=== PATIENT | female | born 1980 | race Caucasian/White ===

== ENCOUNTER 2019-09-23 05:27 | Inpatient (IN) | payer BC ==
[2019-09-23] MEDS ORDERED: Celecoxib 200 MG Cap PO ONE (05:45)
[2019-09-23] MEDS ORDERED: Scopolamine 1.5 MG Transdermal Patch TOP ONE (05:45)
[2019-09-23] MEDS ORDERED: Acetaminophen 500 MG Tab PO ONE (05:45)
[2019-09-23] MEDS ORDERED: Gabapentin 300 MG Cap PO ONE (05:45)
[2019-09-23] MEDS ORDERED: cefOXitin 2 GM Vial ONE (06:40)
[2019-09-23] MEDS ORDERED: Dexamethasone 4 MG/ML SDV ONE (06:59)
[2019-09-23] MEDS ORDERED: Succinylcholine 200 MG/10 ML MDV ONE (06:59)
[2019-09-23] MEDS ORDERED: Rocuronium 50 MG/5 ML Vial ONE (06:59)
[2019-09-23] MEDS ORDERED: Propofol 200 MG/20 ML SDV ONE (06:59)
[2019-09-23] MEDS ORDERED: Glycopyrrolate 0.2 MG/ML 5 ML MDV ONE (06:59)
[2019-09-23] MEDS ORDERED: Neostigmine Methylsulfate 1 MG/ML 5 ML Syringe ONE (06:59)
[2019-09-23] MEDS ORDERED: Ondansetron 4 MG/2 ML SDV ONE (06:59)
[2019-09-23] MEDS ORDERED: fentaNYL 250 MCG/5 ML SDV ONE (06:59)
[2019-09-23] MEDS ORDERED: Midazolam 1 MG/ML 2 ML SDV ONE (06:59)
[2019-09-23] MEDS ORDERED: Dextrose 5%-Lactated Ringers 1,000 ML IV SCH (07:00)
[2019-09-23] MEDS ORDERED: Ketamine 50 MG in Sodium Chloride 0.9% 49.5 ML IV SCH (07:30)
[2019-09-23] MEDS ORDERED: Ketamine 500 MG/5 ML MDV IV SCH (07:30)
[2019-09-23] MEDS ORDERED: Lidocaine 2% 100 MG/5 ML Syringe IVPUSH SCH (07:30)
[2019-09-23] MEDS: cefOXitin 2 GM in Sodium Chloride 0.9% 50 ML IV ONE ×2 (07:48→11:01)
[2019-09-23] MEDS ORDERED: hydrOXYzine HCl 100 MG/2 ML SDV IM ONE (09:38)
[2019-09-23] MEDS ORDERED: Ondansetron 4 MG/2 ML SDV IVPUSH PRN (11:04)
[2019-09-23] MEDS ORDERED: diphenhydrAMINE 50 MG/ML SDV IVPUSH PRN (11:04)
[2019-09-23] MEDS ORDERED: hydrOXYzine HCl 100 MG/2 ML SDV IM PRN (11:04)
[2019-09-23] MEDS ORDERED: HYDROmorphone 0.5 MG/0.5 ML Syringe IVPUSH PRN (11:04)
[2019-09-23] MEDS ORDERED: SCOPOLAMINE PATCH CHECK TOP SCH (11:04)
[2019-09-23] MEDS ORDERED: HYDROmorphone 1 MG/ML Syringe IV PRN (11:04)
[2019-09-23] MEDS ORDERED: Labetalol 20 MG/4 ML Syringe IVPUSH PRN (11:04)
[2019-09-23] MEDS ORDERED: Metoclopramide 10 MG/2 ML SDV IVPUSH PRN (11:04)
[2019-09-23] MEDS: Ondansetron 4 MG/2 ML SDV IVPUSH PRN ×2 (11:13→18:20)
[2019-09-23] MEDS: Lidocaine 0.4%/D5W 2 GM/500 ML BAG IV SCH (11:15)
[2019-09-23] MEDS: Dextrose 5%-Lactated Ringers 1,000 ML IV SCH ×2 (11:17→22:20)
[2019-09-23] MEDS ORDERED: Lactated Ringers 1,000 ML ONE (13:04)
[2019-09-23] MEDS: cefOXitin 2 GM in Sodium Chloride 0.9% 50 ML IV SCH ×2 (13:55→19:26)
[2019-09-23] MEDS: Gabapentin 250 MG/5 ML Solution ML 470 ML Bottle PO SCH ×2 (13:56→21:07)
[2019-09-23] MEDS ORDERED: Pantoprazole 40 MG Vial IVPUSH SCH (16:00)
[2019-09-23] MEDS ORDERED: MVI, Adult with Vitamin K 10 ML, Thiamine 200 MG, Chromium/Copper/Mang/Selen/Zn 1 ML in... IV SCH ×4 (16:00)
[2019-09-23] MEDS: Acetaminophen 325 MG Tab PO SCH ×2 (16:13→21:06)
[2019-09-23] MEDS: Heparin Sodium 5,000 Units/ML Vial SUBCUT SCH (16:13)
[2019-09-24] MEDS: cefOXitin 2 GM in Sodium Chloride 0.9% 50 ML IV SCH ×2 (01:21→08:25)
[2019-09-24] MEDS ORDERED: Iopamidol 612 MG/ML 50 ML SDV PO PRN (03:01)
[2019-09-24] MEDS: Heparin Sodium 5,000 Units/ML Vial SUBCUT SCH ×2 (04:17→16:31)
[2019-09-24] MEDS: Acetaminophen 325 MG Tab PO SCH ×4 (04:17→21:30)
[2019-09-24] MEDS: Dextrose 5%-Lactated Ringers 1,000 ML IV SCH ×2 (04:18→11:10)
--- NOTE | 2019-09-24 05:14 | CRLCR ---
Indication: Status post Charlene-en-Y gastric bypass surgery Technique: Two frontal images of the abdomen acquired following ingestion of contrast material. Comparison: None Findings/Impression: Contrast material is seen the gastric pouch and Charlene limb. No extraluminal contrast is identified. Surgical drains is seen in the left upper quadrant. Mildly distended air-filled small bowel loops likely relate to postoperative ileus. Cholecystectomy clips noted. Dictated by Igor Giles MD @ Sep 24 2019 5:12AM Signed by Dr. Igor Giles @ Sep 24 2019 5:12AM
[2019-09-24] MEDS: Lidocaine 0.4%/D5W 2 GM/500 ML BAG IV SCH (08:16)
[2019-09-24] MEDS: Gabapentin 250 MG/5 ML Solution ML 470 ML Bottle PO SCH ×3 (08:24→21:30)
[2019-09-24] MEDS: Celecoxib 200 MG Cap PO SCH (08:24)
[2019-09-24] MEDS ORDERED: Loratadine 10 MG Tab.DIS PO SCH (09:00)
[2019-09-24] MEDS ORDERED: MVI, Adult with Vitamin K 10 ML, Thiamine 200 MG, Chromium/Copper/Mang/Selen/Zn 1 ML in... IV SCH ×4 (16:00)
[2019-09-24] MEDS ORDERED: Pantoprazole 40 MG Delayed-Release Granules 1 Packet PO SCH (16:00)
[2019-09-25] MEDS: Dextrose 5%-Lactated Ringers 1,000 ML IV SCH (02:08)
[2019-09-25] MEDS: Acetaminophen 325 MG Tab PO SCH (04:00)
[2019-09-25] MEDS: Heparin Sodium 5,000 Units/ML Vial SUBCUT SCH (04:00)
[2019-09-25] MEDS: Celecoxib 200 MG Cap PO SCH (07:08)
[2019-09-25] MEDS ORDERED: Cyanocobalamin (Vitamin B12) 1,000 MCG/ML SDV IM ONE (09:00)
--- NOTE | 2019-09-25 14:09 | PN ---
DATE OF SERVICE: 09/24/2019 The patient is postop day #1 from a laparoscopic Charlene-en-Y gastric bypass with hiatal hernia repair. Clinically, she has done well overnight and had a little bit nausea early and cleared, and her urine output has been satisfactory. The plan will be to we will back down the IV rate, go up to step-2 diet today. She may be ready for discharge home tomorrow. Lucio Kline MD /[id number]
--- NOTE | 2019-09-26 13:28 | OR ---
DATE OF PROCEDURE: 09/23/2019 SURGEON: Lucio Kline MD PREOPERATIVE DIAGNOSIS: Morbid obesity. POSTOPERATIVE DIAGNOSES: 1. Morbid obesity. 2. Marked hepatomegaly. 3. Paraesophageal diaphragmatic hernia. OPERATIVE PROCEDURES: Diagnostic laparoscopy with: 1. Laparoscopic Charlene-en-Y gastric bypass with long limb gastroenterostomy (61047). 2. Joaquín-Cut needle liver biopsy (09437). 3. Repair of paraesophageal diaphragmatic hernia (85706). ANESTHESIA: General. EXHIBITOR SALES: Rachana Burger PA-C, and [employer]. INDICATION FOR PROCEDURE: This is a 38-year-old female presenting with longstanding morbid obesity and increasingly significant comorbidities. After preoperative evaluation and discussion, she wished to proceed with a gastric bypass procedure. Potential risks of procedure including bleeding, infection, leaks from various GI tract closures, problems with bowel obstruction over time, as well as possibility of cardiopulmonary, septic, or hemorrhagic complications leading to were discussed, and the patient wishes to proceed. DETAILS OF PROCEDURE: The patient was taken to the operating room. After general endotracheal anesthesia was induced, she was converted to lithotomy position, and the abdomen prepped and draped. At 15 cm inferior and 5 cm left of the xiphoid process, a transverse incision was made and the peritoneal cavity entered under direct vision with an Optiview trocar, inflated to 15 mmHg pressure with CO2. Laparoscope was then reinserted, no underlying trocar insertion site injuries were seen. Following this, 5 additional trocars were placed across the upper mid abdomen, and general exploration was undertaken. The patient was noted to have marked hepatomegaly with the liver being roughly 2 to 3 times normal and grossly fatty infiltrated. Joaquín-Cut needle biopsy was obtained from left lobe of liver. Minimal bleeding from biopsy sites was controlled with electrocautery. Bilateral subcostal transversus abdominis plane blocks were then placed. The omentum was then divided in the midline up to the level of the transverse colon. This allowed identification of small bowel and ligament of Treitz. Small bowel was then traced out 150 cm distal to that point, where it was divided transversely with OLIVIA stapler. Small bowel was then traced out additional 150 cm where the [id number] enteroenterostomy was accomplished with internal firing of the Endo-OLIVIA 60 mm stapler. Common opening was then closed transversely using the same stapler and the angles were then anastomosed and mesenteric defect was approximated with some 0 Ethibond stitch along with 4 mL of fibrin sealant. The divided end of the Charlene limb was then from the mesentery for a few centimeters, which allowed an antecolic position of the Charlene limb up to the level of the gastroesophageal junction without tension. The liver was then retracted anteriorly. The patient was noted to have a moderate-sized paraesophageal diaphragmatic hernia. This was reduced, and the peritoneum overlying was divided and reflected downward. The diaphragmatic hernia was then repaired anteriorly with a series of 0 Ethibond sutures, reinforced with PTFE pledgets. The anvil of a 25 mm EEA stapler was then attached to Lander sump type tube and brought down through the mouth and a small opening in the gastric pouch allowing the anvil likewise to be pulled down to within the gastric pouch. The divided end of the Charlene limb was then opened and the main body of the EEA stapler passed several centimeters into the small bowel, brought up the anvil, united with it, thus creating the gastrojejunostomy. Upon removal of the stapler, double donuts of mucosa were noted within it. The small bowel was closed off with a vascular staple line. Gastrojejunostomy was reinforced with some 3-0 Vicryl seromuscular stitch, along with fibrin sealant. A leak test was accomplished with injection of 120 mL of air in the gastric pouch while submerged with cefoxitin-containing saline solution. No leaks were identified. A single Fermin-Quiroz drain was then placed through the left lateral trocar site and positioned adjacent to the gastrojejunostomy, from there up into the splenic fossa. The trocars were removed and peritoneal cavity deflated. Incisions were closed with 4-0 Vicryl skin stitch, which was also used to fix the drain, and the patient was taken to the recovery room in satisfactory condition. There were no complications. Physician physician's assistant, Rachana Burger, played an essential role in assisting in this case helping to position the patient, retract structures as needed, as well as suturing and cutting sutures when indicated. Her presence improved patient safety and decreased operative time. Lucio Kline MD /[id number]
--- NOTE | 2019-09-26 13:34 | DISCH ---
FINAL DIAGNOSES: 1. Morbid obesity. 2. Marked hepatomegaly. 3. Paraesophageal diaphragmatic hernia. OPERATIVE PROCEDURES: Done on 09/23/19, diagnostic laparoscopy with: 1. Laparoscopic Charlene-en-Y gastric bypass with long limb gastroenterostomy. 2. Joaquín-Cut needle liver biopsy. 3. Repair of paraesophageal diaphragmatic hernia. SUMMARY: This is a 38-year-old who presenting with longstanding morbid obesity and increasingly significant comorbidities. After preoperative evaluation and discussion, she wished to proceed with a gastric bypass procedure. This was done on the date of admission. She was notable for a fatty infiltrated liver. Joaquín-Cut needle biopsies were obtained from left lobe of the liver and concurrent paraesophageal diaphragmatic hernia was encountered and likewise repaired. Postoperatively, the patient has had no significant problems, she is tolerating Tylenol, Celebrex, and gabapentin for pain, not requiring any postoperative narcotics. She will be discharged home to continue Tylenol and Celebrex on a p.r.n. basis and should be instructed to stay on a step-2 diet until the first appointment, which will with Rachana Burger of [facility] in [place] on 10/04/2019. She should be continued with her other usual medications other than she will not be taking ranitidine which she has not taken for some time, and then otherwise, continue the Claritin and Celebrex as preoperatively along with Tylenol as needed.
== END 2019-09-25 08:31 | disposition home or self-care (01) | DRG 403 ==
LOC: JP.SDSSCHI 05:27 → JP.SDS 05:27 → JP.MS 09:30 → EDSTATUS 10:40
PROVIDERS: ADMIT Surgery; ATTEND Surgery
PROC: 0D164ZA Bypass Stomach to Jejunum, Percutaneous Endoscopic Approach (ICD-10-PCS; principal; 2019-09-23)
PROC: 0FB24ZX Excision of Left Lobe Liver, Percutaneous Endoscopic Approach, Diagnostic (ICD-10-PCS; 2019-09-23)
PROC: 0BQT4ZZ Repair Diaphragm, Percutaneous Endoscopic Approach (ICD-10-PCS; 2019-09-23)
DX: E66.01 Morbid (severe) obesity due to excess calories (principal); R16.0 Hepatomegaly, not elsewhere classified; K44.9 Diaphragmatic hernia without obstruction or gangrene; K76.0 Fatty (change of) liver, not elsewhere classified; Z68.41 Body mass index [BMI] 40.0-44.9, adult
CPT/HCPCS: 36415; 74240; 81025; 82962; 85027; 86850; 86900; 86901; A9270-GY; C9113; J0171; J0330; J0694; J1100; J1644; J2001; J2250; J2405; J2704; J2710; J2765; J2795; J3010; J3410; J3411; J3490; J7042; J7050; J7120; Q9967